=== PATIENT | male | born 1980 | race African-American/Black ===

== ENCOUNTER 2025-04-21 23:07 | Emergency (ER) | payer SELFPAY ==
[2025-04-21 23:26] LABS: BASOPHILS ABSOLUTE AUTO 0.03 K/uL (0.00-0.20); BASOPHILS PERCENT AUTO 0.5 % (0.0-2.0); EOSINOPHILS ABSOLUTE AUTO 0.12 K/uL (0.00-0.50); EOSINOPHILS PERCENT AUTO 2.0 % (0.0-5.0); IMMATURE GRAN ABSOLUTE AUTO 0.03 10^3/uL (0.00-0.04); IMMATURE GRAN PERCENT AUTO 0.5 % (0.0-0.4); LYMPHOCYTES ABSOLUTE AUTO 2.49 K/uL (0.50-3.50); LYMPHOCYTES PERCENT AUTO 41.4 % (10.0-50.0); MONOCYTES ABSOLUTE AUTO 0.72 K/uL (0.00-1.00); MONOCYTES PERCENT AUTO 12.0 % (2.0-14.0); NEUTROPHILS ABSOLUTE AUTO 2.62 K/uL (1.40-7.00); NEUTROPHILS PERCENT AUTO 43.6 % (45.0-80.0); PLATELET COUNT,PLT 254 K/uL (150-350); RED BLOOD CELL COUNT 5.35 M/uL (4.33-5.41); RED CELL DISTRIBUTION WIDTH 13.1 % (11.2-14.1); WHITE BLOOD CELL COUNT,WBC 6.0 K/uL (4.0-10.2)
[2025-04-21] MEDS: levETIRAcetam 500 MG/5 ML SDV IVPUSH ONE (23:32)
[2025-04-21 23:49] LABS: ALANINE AMINOTRANSFERASE,ALT 34.0 U/L (12-78); ASPARTATE AMNIOTRANSFERASE,AST 19.0 U/L (15-37); BILIRUBIN TOTAL 0.3 mg/dL (0.2-1.0); BLOOD UREA NITROGEN,BUN 10.0 mg/dL (7-18); CARBON DIOXIDE,CO2 21.0 mmol/L (21.0-32.0); CHLORIDE,CL 108.0 mmol/L (98-107); CREATININE 1.47 mg/dL (0.51-1.17); EST CRCL DRUG DOSING (CG) 74.54 mL/min; ETHANOL BLOOD MEDICAL 0.0 g/dL (0.000-0.080); GLUCOSE RANDOM 134.0 mg/dL (70-99); POTASSIUM,K 3.5 mmol/L (3.5-5.1); PROTEIN TOTAL,TP 7.2 g/dL (6.4-8.2); SODIUM,NA 146.0 mmol/L (136-145)
[2025-04-21 23:50] LABS: ESTIMATED GFR 61.0 mL/min (>=60)
[2025-04-21] MEDS: Sodium Chloride 0.9% 10 ML Syringe FLUSH PRN (23:57)
[2025-04-22] MEDS: Ondansetron 4 MG/2 ML SDV IVPUSH ONE
[2025-04-22 00:04] LABS: INR 1.0 (0.9-1.1); PTT,PARTIAL THROMBOPLSTIN TIME 21.7 SEC (23.8-34.4)
== END 2025-04-22 01:25 | disposition home or self-care (01) ==
LOC: LL.ED 23:07
DX: R56.9 Unspecified convulsions (principal); S00.03XA Contusion of scalp, initial encounter; W01.198A Fall on same level from slipping, tripping and stumbling with subsequent striking against other object, initial encounter
CPT/HCPCS: 36415; 70450; 80053; 80307; 83735; 84484; 85025; 85610; 85730; 93005; 93010; 96361; 96374; 96375; 99284; 99285-25; A9270-GY; J1953; J2405; J7030